=== PATIENT | male | born 1970 | race Caucasian/White ===

== ENCOUNTER 2017-04-22 16:14 | Emergency (ER) | payer BC ==
--- NOTE | ~2017-04-22 | ER ---
PATIENT'S NAME: ARTHUR CHAUDHARI [facility] AGE: 46 Y [address] ROOM: [place] [address] LOCATION: [facility] ADMIT DATE: 04/22/2017 ER/Outpatient Report DISCHARGE DATE: 04/22/2017 FAMILY PHYSICIAN: PHYSICIAN, NO ATTENDING PHYSICIAN: Dolly Gomez TIME OF ARRIVAL: 1614 hours. TIME OF EVALUATION: 1618 hours. CHIEF COMPLAINT: Abdominal pain. HISTORY OF PRESENT ILLNESS: This is an otherwise healthy 46-year-old male, who presented to the ED per the request of his primary care physician, Dr. Espinoza for a CT scan. According to the patient, he was seen in her clinic this afternoon and had labs done at that time and was recommended that he get a CT scan. He reports that the pain started about 6 days ago while he was eating and has continued ever since. He has noted that he has had constipation. Denies emesis, but has been nauseous. Denies fever, chills, lightheadedness, dizziness, chest pain, shortness of breath. No problems with urination. He has been taking Prilosec at night for the pain. PAST MEDICAL HISTORY: Unremarkable. MEDICATIONS: He takes the Prilosec. ALLERGIES: HE HAS NO KNOWN DRUG ALLERGIES. SOCIAL HISTORY: He does chew tobacco. Occasional alcohol use. No illicit drug use. No smoking. FAMILY HISTORY: His son has eosinophilic esophagitis as well as a hiatal hernia. REVIEW OF SYSTEMS: All systems were reviewed by me and are negative other than that listed in the HPI. PATIENT'S NAME: ARTHUR CHAUDHARI [facility] AGE: 46 Y [address] ROOM: [place] [address] LOCATION: [facility] ADMIT DATE: 04/22/2017 ER/Outpatient Report DISCHARGE DATE: 04/22/2017 FAMILY PHYSICIAN: PHYSICIAN, SHYANN ATTENDING PHYSICIAN: Dolly Gomez PHYSICAL EXAMINATION: VITAL SIGNS: Pulse is 70, respiratory rate 16, temp is 99, oxygen saturation 96% on room air. GENERAL: He is a 46-year-old male, appearing his stated age. No apparent distress. Alert and oriented x3. HEENT: Pupils equal, round, reactive to light. Patent airway. Moist mucous membranes. CARDIOVASCULAR: Heart is regular rate and rhythm. LUNGS: Clear to auscultation bilaterally. ABDOMEN: Positive bowel sounds. Soft, nondistended, tenderness to palpation in the epigastrium as well as a left upper quadrant. No rebound, rigidity, or guarding. EXTREMITIES: No edema noted. SKIN: No rash noted. NEURO: Normal gait. LABORATORY DATA AND X-RAYS: Pertinent lab work done today and sent over from the [facility]. CBC shows white blood count of 8.7, hemoglobin 16.5, platelets of 207, normal automatic differential and a CMP. Sodium is 143, potassium 4.6, chloride 105, bicarb 26, glucose 96, BUN of 21, creatinine 1.16, calcium 9.9, ALT 26, AST 24, alkaline phosphatase 97, and bilirubin OF 1.4. His amylase was 69. CT with IV contrast was obtained and shows no appendicitis, no free air, it does shows small hiatal hernia. IMPRESSION: 1. Abdominal pain. 2. Constipation. 3. Hiatal hernia. EMERGENCY DEPARTMENT COURSE: The patient was given GI cocktail in the ED, which did not help with the pain. Discussed that he may have constipation and recommended trialing MiraLax to see if this will improve the pain with resolution of his constipation. I also discussed his hiatal hernia with him and recommended that he go see the GI specialist for which he was given their phone number to follow up with them. The patient agrees with the assessment and plan and understands and will follow up with his primary care provider. LENY CORREA MD FOR DOLLY GOMEZ DO CW/modl PATIENT'S NAME: ARTHUR CHAUDHARI [facility] AGE: 46 Y [address] ROOM: [place] [address] LOCATION: [facility] ADMIT DATE: 04/22/2017 ER/Outpatient Report DISCHARGE DATE: 04/22/2017 FAMILY PHYSICIAN: PHYSICIAN, NO ATTENDING PHYSICIAN: Dolly Gomez /[id number] ATTENDING ADDENDUM: I saw and evaluated the patient. I have discussed with the resident, agree with the resident's findings and plan and agree with the documented note above. DOLLY GOMEZ DO d: 04/23/17 0040 t: 05/10/172009, OUTPATIENT REPORT
== END 2017-04-22 17:31 | disposition disaster alternative care site (69) ==
LOC: GMED 16:14
DX: K59.00 Constipation, unspecified (principal); K44.9 Diaphragmatic hernia without obstruction or gangrene; K21.9 Gastro-esophageal reflux disease without esophagitis; F17.220 Nicotine dependence, chewing tobacco, uncomplicated; Z79.899 Other long term (current) drug therapy
CPT/HCPCS: Q9967